=== PATIENT | male | born 1990 | race Two or more races ===

== ENCOUNTER 2022-05-16 18:32 | Emergency (ER) | payer OTHER ==
[~2022-05-16] VITALS: Ht 177.8 cm; Wt 112.0 kg
[2022-05-16] MEDS ORDERED: CYCL-837 PO (20:03)
[2022-05-16] MEDS ORDERED: IBUP800T26 PO (20:03)
[2022-05-17 00:23] VITALS: BP 139/84
== END 2022-05-17 00:25 | disposition home or self-care (01) ==
LOC: ER 18:35
DX: S13.4XXA Sprain of ligaments of cervical spine, initial encounter (principal); R07.89 Other chest pain; V49.9XXA Car occupant (driver) (passenger) injured in unspecified traffic accident, initial encounter; Y93.89 Activity, other specified; Y92.89 Other specified places as the place of occurrence of the external cause; Y99.8 Other external cause status
CPT/HCPCS: 70360; 72040